=== PATIENT | female | born 1995 | race American Indian/Alaskan Native ===

== ENCOUNTER 2016-09-27 22:51 | Inpatient (IN) | payer MEDICAID ==
[2016-09-28] MEDS ORDERED: ePHEDrine SULFATE IV PRN (00:50)
[2016-09-28] MEDS ORDERED: BRETHINE IVP PRN (00:50)
[2016-09-28] MEDS ORDERED: MINERAL OIL PO PRN (00:50)
[2016-09-28] MEDS ORDERED: BRETHINE SUB-Q PRN (00:50)
[2016-09-28] MEDS ORDERED: STADOL IV PRN (00:50)
[2016-09-28] MEDS ORDERED: ZOFRAN IV PRN (00:50)
[2016-09-28] MEDS ORDERED: XYLOCAINE 2% INFILTRATI ONE (00:50)
[2016-09-28] MEDS ORDERED: PITOCin/NS 30 UNIT/500ML 30 UNITS/500 ML BAG IV SCH (01:00)
[2016-09-28] MEDS ORDERED: PITOCin/NS 20 UNIT/1000ML DRIP 20 UNITS/1,000 ML BAG IV SCH (01:00)
[2016-09-28] MEDS ORDERED: LACTATED RINGERS 1,000 ML IV SCH (01:00)
[2016-09-28 01:26] LABS: Hematocrit 45.3 % (30.3-42.9); Hemoglobin 14.8 gm/dl (10.1-14.3); Mean Corpuscular HGB Conc 33 % (30-34); Mean Corpuscular Hemoglobin 27 pg (28-32); Mean Corpuscular Volume 83 fl (79-97); Platelet Count 144 K/mm3 (140-440); Red Blood Count 5.49 M/mm3 (3.65-5.03); Red Cell Distribution Width 17.9 % (13.2-15.2); White Blood Count 10.8 K/mm3 (4.5-11.0)
[2016-09-28] MEDS ORDERED: POLYCILLIN/NS 2 GM/100 ML 2 GM/100 ML BAG IV ONE ×2 (01:34→07:30)
--- NOTE | 2016-09-28 06:07 | History and Physical Report ---
History of Present Illness Date of examination: 09/28/16 (active labor) Date of admission: 09/28/16 00:55 History of present illness: EDC Confirmation: 10/11/2016 Gestational Age: 27 6/7 weeks Past History : 1 Term Births: 0 Premature Births: 0 Living Children: 0 Para: 0 Mult. Births: 0 Prev : 0 Prev. attempt? 0 Aborta: 0 Elect. Ab: 0 Spont. Ab: 0 Ectopics: 0 Past Medical History: Hyperthyroidism - no meds in >1 year HSV2 Anemia Past Surgical History: negative Past Medical History Anesthesia Complications: negative Anemia: negative Autoimmune Disorder: negative Bleeding Disorder: negative Blood Transfusions: negative Breast Disease: negative Diabetes: negative Heart Disease: negative Hypertension: negative Hepatitis/Liver Disease: negative Kidney Disease/UTI: negative Neurologic/Epilepsy/Migraines: negative Phlebitis/Varicosities: negative Psychiatric: negative Pulmonary Disease/Asthma: negative Thyroid Disease: negative Hospitalizations: negative Surgery (Non-sap bw architect): negative Abnormal PAP: negative, pt reports normal 03/2016 KRISTY Exposure: negative Infertility: negative Uterine Anomaly: negative Uterine Surgery (not C/S): negative Other Gynecologic Problems: negative Family Hx: DM - MGM and Aunt hyperthyroid - Mother, MGM Social Hx: Single, relocated from [facility] denies ETOH, drugs or smoking Infection History Hx of STD: chlamydia HIV Risk Eval: no Hepatitis B Risk Eval: low risk Personal hx. of genital herpes: yes Partner hx. of genital herpes: no Rash, Viral, or Febrile illness since last LMP? no Varicella/Chicken Pox Status: Unknown TB Risk: no Genetic History Congenital Heart Defect: Mom: no Dad: no Bita Disease: Mom: no Dad: no Thalassemia Mom: no Dad: no Neural Tube Defect Mom: no Dad: no Down's Syndrome Mom: no Dad: no Lew-Sachs Mom: no Dad: no Sickle Cell Disease/Trait Mom: no Dad: no Hemophilia Mom: no Dad: no Muscular Dystrophy Mom: no Dad: no Cystic Fibrosis Mom: no Dad: no [place] Chorea Mom: no Dad: no Mental Retardation Mom: no Dad: no Fragile X Mom: no Dad: no Other Genetic/Chromosomal Disorder Mom: no Dad: no Child w/other defect Mom: no Dad: no Enviromental Exposures Xray Exposure: no Medication, drug, or alcohol use since LMP: no Chemical/Other Exposure: no Exposure to Cat Liter: no Hx of Parvovirus (Fifth Disease): no Occupational Exposure to Children: none Current Allergies (reviewed today): * PENICILLIN (Critical) Laboratory Results Routine Urinalysis Leukocytes: negative Nitrite: negative Urobilinogen: negative Protein: negative Blood: negative Ketone: negative Bilirubin: negative Glucose: negative Urine HCG: positive Review of Systems General Denies fever, chills, sweats, anorexia, fatigue, weakness, malaise, weight loss and sleep disorder. Denies nausea, vomiting, headache, swelling of legs, abdominal pain, vaginal discharge, vaginal bleeding and contractions. Denies vaginal discharge, incontinence, dysuria, hematuria, urinary frequency, amenorrhea, menorrhagia, abnormal vaginal bleeding, pelvic pain, genital sores, decreased libido, painful periods, painful sex, urinary urgency, hot flashes, vaginal dryness, vaginal itching and vaginal odor. CV Denies chest pains, palpitations, syncope, dyspnea on exertion, orthopnea, PND and peripheral edema. Resp Denies cough, dyspnea at rest, excessive sputum, hemoptysis, wheezing and pleurisy. GI Denies nausea, vomiting, diarrhea, constipation, change in bowel habits, abdominal pain, melena, hematochezia, jaundice, gas/bloating, indigestion/ heartburn, dysphagia and odynophagia. Endo Denies cold intolerance, heat intolerance, polydipsia, polyphagia, polyuria and unusual weight change. Breast Denies left breast lump, right breast lump, nipple discharge, bloody discharge from nipple, breast pain, abnormal mammogram and breast enlargement. MS Denies back pain, joint pain, joint swelling, muscle cramps, muscle weakness, stiffness, arthritis, sciatica, restless legs, leg pain at night and leg pain with exertion. Derm Denies rash, itching, dryness and suspicious lesions. Neuro Denies paralysis, paresthesias, headache, seizures, tremors, vertigo, transient blindness, frequent falls, frequent headaches and difficulty walking. Psych Denies depression, anxiety, irritability and mood swings. Eyes Denies blurring, diplopia, irritation, discharge, vision loss, eye pain and photophobia. ENT Denies earache, ear discharge, tinnitus, decreased hearing, nasal congestion, nosebleeds, sore throat and hoarseness. Allergy Denies urticaria, allergic rash, hay fever and recurrent infections. Heme Denies abnormal bruising, bleeding and enlarged lymph nodes. PHYSICAL EXAM HEENT: PERRLA, normal conjunctiva, external nose and nasal mucosa normal, oropharynx clear Neck/Thyroid: supple, thyroid normal Skin no significant abnormal lesions or rashes Chest: respiratory effort normal, clear to auscultation Breasts: normal without skin changes or masses CV: regular, normal S1-S2, no murmur, no rub, no gallop Abdomen: normal bowel sounds, soft, nontender, no HSM Musculoskeletal: grossly normal ROM in joints, no joint tenderness or muscle weakness Neuro: grossly normal DTRs, sensation, strength, cranial nerves Extremities: no clubbing, cyanosis, or edema Past History - Obstetrical History Expected Date of Delivery: 10/11/16 Actual Gestation: 38 Week(s) 1 Day(s) : 1 Number of Living Children: 0 Medications and Allergies Allergies Allergy/AdvReac Type Severity Reaction Status Date / Time Penicillins Allergy Itching Verified 09/28/16 01:01 Active Meds: Active Medications Butorphanol Tartrate (Stadol) 2 mg IV Q2H PRN PRN Reason: Pain , Severe (7-10) Diphtheria/Tetanus/Acell Pertussis (Boostrix) 0.5 ml IM .ONCE ONE Stop: 09/29/16 06:01 Lactated Ringer's (Lactated Ringers) 1,000 mls @ 125 mls/hr IV DIRECT TERE Last Admin: 09/28/16 01:40 Dose: 125 mls/hr Oxytocin/Sodium Chloride (Pitocin/Ns 20 Unit/1000ml Drip) 20 units in 1,000 mls @ 125 mls/hr IV DIRECT TERE Oxytocin/Sodium Chloride (Pitocin/Ns 30 Unit/500ml) 30 units in 500 mls @ 2 mls /hr IV TITR TERE PRN Reason: Protocol Influenza Virus Vaccine Quadrival (Fluarix Quad [id number](36 Mos+)) 60 mcg IM .ONCE ONE Stop: 09/28/16 12:01 Mineral Oil (Mineral Oil) 30 ml PO QHS PRN PRN Reason: Constipation Ondansetron HCl (Zofran) 4 mg IV Q8H PRN PRN Reason: Nausea And Vomiting - Vital Signs Vital signs: Vital Signs Pulse Pulse Ox 73 98 09/27/16 23:14 09/27/16 23:14 Temp Pulse Resp BP Pulse Ox 98.3 F 81 18 138/75 96 09/28/16 05:06 09/28/16 05:09 09/28/16 05:06 09/28/16 05:09 09/28/16 00:54 - Physical Exam Breasts: Positive: deferred Cardiovascular: Regular rate, Normal S1, Normal S2 Lungs: Positive: Normal air movement Abdomen: Positive: normal appearance, soft, normal bowel sounds. Negative: distention, tenderness Genitourinary (Female): Positive: normal external genitalia Vulva: both: normal Vagina: Positive: normal moisture. Negative: discharge Cervix: Negative: lesion, discharge Uterus: Positive: normal size, normal contour Adnexa: both: normal Anus/Rectum: Positive: normal perianal skin, heme negative. Negative: rectal mass, hemorrhoids Extremities: Deep Tendon Reflex Grade: Normal +2 - Obstetrical FHR: category 1 Uterine Contraction Monitor Mode: External Cervical Dilatation: 8 Cervical Effacement Percentage: 100 station: 0 Uterine Contraction Frequency (min): q2-3 Uterine Contraction Duration: 50 Uterine Contraction Pattern: Regular Results Result Diagrams: 09/28/16 01:02 Abnormal lab results 09/28/16 Range/Units 01:02 RBC 5.49 H (3.65-5.03) M/mm3 Hgb 14.8 H (10.1-14.3) gm/dl Hct 45.3 H (30.3-42.9) % MCH 27 L (28-32) pg RDW 17.9 H (13.2-15.2) % All other labs normal. Assessment and Plan - Patient Problems (1) Active labor Onset Date: ~09/28/16 Current Visit: Yes Status: Acute Plan to address problem: 21yo @ 38 weeks in active labor Desires non medicated delivery Doing well SVE 8,100,0 GBS negative Orders in EMR Anticipate delivery (2) 38 weeks gestation of Current Visit: Yes Status: Acute
[2016-09-28] MEDS ORDERED: SUBLIMAZE ONE (07:49)
--- NOTE | 2016-09-28 07:56 | Progress Note ---
Assessment and Plan Pt returned to be Requesting pain medication SVE 9,100,0 ISE placed. Anticipate delivery - Patient Problems (1) Active labor Onset Date: ~09/28/16 Current Visit: Yes Status: Acute (2) 38 weeks gestation of Current Visit: Yes Status: Acute Subjective - Subjective Date of service: 09/28/16 (requesting pain medication) Interval history: EDC Confirmation: 10/11/2016 Gestational Age: 27 6/7 weeks Past History : 1 Term Births: 0 Premature Births: 0 Living Children: 0 Para: 0 Mult. Births: 0 Prev : 0 Prev. attempt? 0 Aborta: 0 Elect. Ab: 0 Spont. Ab: 0 Ectopics: 0 Past Medical History: Hyperthyroidism - no meds in >1 year HSV2 Anemia Past Surgical History: negative Past Medical History Anesthesia Complications: negative Anemia: negative Autoimmune Disorder: negative Bleeding Disorder: negative Blood Transfusions: negative Breast Disease: negative Diabetes: negative Heart Disease: negative Hypertension: negative Hepatitis/Liver Disease: negative Kidney Disease/UTI: negative Neurologic/Epilepsy/Migraines: negative Phlebitis/Varicosities: negative Psychiatric: negative Pulmonary Disease/Asthma: negative Thyroid Disease: negative Hospitalizations: negative Surgery (Non-registered nurse teacher): negative Abnormal PAP: negative, pt reports normal 03/2016 KRISTY Exposure: negative Infertility: negative Uterine Anomaly: negative Uterine Surgery (not C/S): negative Other Gynecologic Problems: negative Family Hx: DM - MGM and Aunt hyperthyroid - Mother, MGM Social Hx: Single, relocated from [facility] denies ETOH, drugs or smoking Infection History Hx of STD: chlamydia HIV Risk Eval: no Hepatitis B Risk Eval: low risk Personal hx. of genital herpes: yes Partner hx. of genital herpes: no Rash, Viral, or Febrile illness since last LMP? no Varicella/Chicken Pox Status: Unknown TB Risk: no Genetic History Congenital Heart Defect: Mom: no Dad: no Bita Disease: Mom: no Dad: no Thalassemia Mom: no Dad: no Neural Tube Defect Mom: no Dad: no Down's Syndrome Mom: no Dad: no Lew-Sachs Mom: no Dad: no Sickle Cell Disease/Trait Mom: no Dad: no Hemophilia Mom: no Dad: no Muscular Dystrophy Mom: no Dad: no Cystic Fibrosis Mom: no Dad: no [place] Chorea Mom: no Dad: no Mental Retardation Mom: no Dad: no Fragile X Mom: no Dad: no Other Genetic/Chromosomal Disorder Mom: no Dad: no Child w/other defect Mom: no Dad: no Enviromental Exposures Xray Exposure: no Medication, drug, or alcohol use since LMP: no Chemical/Other Exposure: no Exposure to Cat Liter: no Hx of Parvovirus (Fifth Disease): no Occupational Exposure to Children: none Current Allergies (reviewed today): * PENICILLIN (Critical) Laboratory Results Routine Urinalysis Leukocytes: negative Nitrite: negative Urobilinogen: negative Protein: negative Blood: negative Ketone: negative Bilirubin: negative Glucose: negative Urine HCG: positive Review of Systems General Denies fever, chills, sweats, anorexia, fatigue, weakness, malaise, weight loss and sleep disorder. Denies nausea, vomiting, headache, swelling of legs, abdominal pain, vaginal discharge, vaginal bleeding and contractions. Denies vaginal discharge, incontinence, dysuria, hematuria, urinary frequency, amenorrhea, menorrhagia, abnormal vaginal bleeding, pelvic pain, genital sores, decreased libido, painful periods, painful sex, urinary urgency, hot flashes, vaginal dryness, vaginal itching and vaginal odor. CV Denies chest pains, palpitations, syncope, dyspnea on exertion, orthopnea, PND and peripheral edema. Resp Denies cough, dyspnea at rest, excessive sputum, hemoptysis, wheezing and pleurisy. GI Denies nausea, vomiting, diarrhea, constipation, change in bowel habits, abdominal pain, melena, hematochezia, jaundice, gas/bloating, indigestion/ heartburn, dysphagia and odynophagia. Endo Denies cold intolerance, heat intolerance, polydipsia, polyphagia, polyuria and unusual weight change. Breast Denies left breast lump, right breast lump, nipple discharge, bloody discharge from nipple, breast pain, abnormal mammogram and breast enlargement. MS Denies back pain, joint pain, joint swelling, muscle cramps, muscle weakness, stiffness, arthritis, sciatica, restless legs, leg pain at night and leg pain with exertion. Derm Denies rash, itching, dryness and suspicious lesions. Neuro Denies paralysis, paresthesias, headache, seizures, tremors, vertigo, transient blindness, frequent falls, frequent headaches and difficulty walking. Psych Denies depression, anxiety, irritability and mood swings. Eyes Denies blurring, diplopia, irritation, discharge, vision loss, eye pain and photophobia. ENT Denies earache, ear discharge, tinnitus, decreased hearing, nasal congestion, nosebleeds, sore throat and hoarseness. Allergy Denies urticaria, allergic rash, hay fever and recurrent infections. Heme Denies abnormal bruising, bleeding and enlarged lymph nodes. PHYSICAL EXAM HEENT: PERRLA, normal conjunctiva, external nose and nasal mucosa normal, oropharynx clear Neck/Thyroid: supple, thyroid normal Skin no significant abnormal lesions or rashes Chest: respiratory effort normal, clear to auscultation Breasts: normal without skin changes or masses CV: regular, normal S1-S2, no murmur, no rub, no gallop Abdomen: normal bowel sounds, soft, nontender, no HSM Musculoskeletal: grossly normal ROM in joints, no joint tenderness or muscle weakness Neuro: grossly normal DTRs, sensation, strength, cranial nerves Extremities: no clubbing, cyanosis, or edema Patient reports: movement normal, no new complaints, no loss of fluid, no vaginal bleeding, no contractions Objective - Vital Signs Vital Signs: Vital Signs - 12hr 09/27/16 09/27/16 09/27/16 23:14 23:15 23:19 Temperature Pulse Rate 73 66 67 Respiratory Rate Blood Pressure 138/84 O2 Sat by Pulse 98 98 Oximetry 09/27/16 09/27/16 09/27/16 23:24 23:29 23:34 Temperature Pulse Rate 64 81 68 Respiratory Rate Blood Pressure O2 Sat by Pulse 98 98 98 Oximetry 09/27/16 09/27/16 09/27/16 23:39 23:41 23:44 Temperature Pulse Rate 72 72 79 Respiratory Rate Blood Pressure O2 Sat by Pulse 98 94 99 Oximetry 09/27/16 09/27/16 09/27/16 23:49 23:54 23:59 Temperature Pulse Rate 69 86 73 Respiratory Rate Blood Pressure O2 Sat by Pulse 98 97 98 Oximetry 09/28/16 09/28/16 09/28/16 00:04 00:09 00:14 Temperature Pulse Rate 69 78 82 Respiratory Rate Blood Pressure O2 Sat by Pulse 97 98 97 Oximetry 09/28/16 09/28/16 09/28/16 00:19 00:24 00:29 Temperature Pulse Rate 75 73 71 Respiratory Rate Blood Pressure O2 Sat by Pulse 99 98 98 Oximetry 09/28/16 09/28/16 09/28/16 00:34 00:39 00:44 Temperature Pulse Rate 78 71 72 Respiratory Rate Blood Pressure O2 Sat by Pulse 97 98 99 Oximetry 09/28/16 09/28/16 09/28/16 00:49 00:54 01:25 Temperature Pulse Rate 84 72 85 Respiratory Rate Blood Pressure 142/83 O2 Sat by Pulse 97 96 Oximetry 09/28/16 09/28/16 09/28/16 05:06 05:09 07:07 Temperature 98.3 F 98.2 F Pulse Rate 81 82 Respiratory 18 18 Rate Blood Pressure 138/75 146/79 O2 Sat by Pulse Oximetry 09/28/16 09/28/16 09/28/16 07:23 07:37 07:52 Temperature Pulse Rate 84 71 80 Respiratory Rate Blood Pressure 142/80 140/83 139/77 O2 Sat by Pulse Oximetry - Exam Breasts: deferred Cardiovascular: Regular rate Lungs: Normal air movement Abdomen: Present: normal appearance, soft Uterus: Present: normal FHR: category 1 Uterine Contraction Monitor Mode: Internal Cervical Dilatation: 9 Cervical Effacement Percentage: 100 station: 0 Uterine Contraction Pattern: Regular Uterine Contraction Intensity: Moderate Extremities: normal Deep Tendon Reflex Grade: Normal +2 - Labs Labs: Abnormal Labs 09/28/16 01:02 RBC 5.49 H Hgb 14.8 H Hct 45.3 H MCH 27 L RDW 17.9 H Laboratory Results - last 24 hr 09/28/16 09/28/16 01:02 01:02 WBC 10.8 RBC 5.49 H Hgb 14.8 H Hct 45.3 H MCV 83 MCH 27 L MCHC 33 RDW 17.9 H Plt Count 144 Blood Type B POSITIVE Antibody Screen Negative
[2016-09-28] MEDS ORDERED: TUCKS PAD TP PRN (09:02)
[2016-09-28] MEDS ORDERED: DERMOPLAST TP PRN (09:02)
[2016-09-28] MEDS ORDERED: DULCOLAX PR PRN (09:02)
[2016-09-28] MEDS ORDERED: BENADRYL PO PRN (09:02)
[2016-09-28] MEDS ORDERED: NORCO 5/325 PO PRN (09:02)
[2016-09-28] MEDS ORDERED: LANSINOH TP PRN (09:02)
[2016-09-28] MEDS ORDERED: TYLENOL PO PRN (09:02)
[2016-09-28] MEDS ORDERED: PHENERGAN PO PRN (10:00)
[2016-09-28] MEDS ORDERED: SODIUM CHLORIDE FLUSH SYRINGE 10 ML IV PRN (10:00)
[2016-09-28] MEDS: MOTRIN PO SCH ×2 (10:22→17:48)
[2016-09-28] MEDS ORDERED: FLUARIX QUAD 2016-2017(36 MOS+) IM ONE (12:00)
--- NOTE | 2016-09-28 12:48 | Admit Criteria Form ---
Admission Criteria Documentation: OBSTETRIC AND GYNECOLOGIC DISEASE GRG Clinical Indications for Admission to Inpatient Care (Place 'X' for any and all applicable criteria): Hospital admission is needed for appropriate care of the patient because of ANY ONE of the following (1)(2)(3): [ ]I. Hemodynamic instability, as indicated by ALL of the following (1)(2)(3)( 4)(5): [ ]a) Vital signs or other findings not as expected for chronic patient condition or baseline [ ]b) Instability indicated by ANY ONE of the following: [ ]i) Hypotension [ ]ii) Symptomatic tachycardia unresponsive to treatment (eg, analgesia, fluids, sedation as indicated) [ ]iii) Inadequate perfusion indicated by ANY ONE of the following: [ ]A. Lactic acidosis (greater than 2 mmol/ L) [ ]B. New abnormal capillary refill ( greater than 3 seconds) [ ]C. Reduced urine output [ ]D. New altered mental status [ ]iv) Orthostatic vital sign changes unresponsive to treatment (eg, fluids) [ ]v) Multiple IV fluid boluses required to maintain adequate blood pressure or perfusion [ ]vi) IV inotropic or vasopressor medication required to maintain adequate blood pressure or perfusion [ ]II. Obstetric infection requiring hospitalization indicated by ANY ONE of the following(13)(14): [ ]a) Chorioamnionitis [ ]b) Endometritis (except mild endometritis) [ ]c) Pelvic abscess [ ]d) Peritonitis [ ]e) Septic pelvic thrombophlebitis [ ]III. Amniotic fluid or pulmonary embolism(4)(5)(6) [ ]IV. Suspected peritonitis or ectopic requiring monitoring beyond scope of 24 hours or observation care(7)(8) [ ]V. compromise requiring hospitalization indicated by ALL of the following(9)(10): [ ]a) compromise indicated by ANY ONE of the following(11): [ ]i) Abnormal heart rate monitoring [ ]ii) Abnormal contraction stress test [ ]iii) Abnormal biophysical profile [ ]iv) Abnormal Doppler flow in vessels (ie, Doppler velocimetry) (12) [ ]b) Persistence of compromise indicators during evaluation and observation monitoring [ ]. Ovarian hyperstimulation syndrome requiring hospitalization[A] indicated by ALL of the following(15): [ ]a) Recent ovarian stimulation with gonadotropins, or evidence on ultrasound of spontaneous emergence of large number of ovarian follicles [ ]b) Evidence of severe ovarian hyperstimulation syndrome indicated by ANY ONE of the following: [ ]i) Abdominal pain unresponsive to oral therapy [ ]ii) Acute respiratory distress syndrome [ ]iii) Electrolyte imbalance ( eg, hyponatremia, hyperkalemia) [ ]iv) Elevated liver enzymes [ ]v) Evidence of thromboembolism [ ]vi) Hemoconcentration (hematocrit greater than 45 % (0.45)) [ ]vii) Inability to maintain oral intake adequate to prevent hemoconcentration [ ]viii) Marked hypotension from baseline (eg, SBP 20 mmHg below patients usual pressure) [ ]ix) Oliguria or anuria [ ]x) Ovarian torsion [ ]xi) Pleural or pericardial effusion on x-ray or echocardiogram [ ]xii) Rapid increase in serum creatinine to greater than 1.2 mg/dL (106 micromoles/L) or creatinine clearance less than 50 mL/min/1.73m2 (0.84 mL/ sec/1.73m2) [ ]xiii) Ruptured ovarian cyst with hemorrhage [ ]xiv) Severe abdominal pain or peritoneal signs [ ]xv) Tense ascites that cannot be managed with paracentesis in outpatient setting [ ]VII.Pelvic infection requiring hospitalization indicated by ANY ONE of the following (16): [ ]a) Outpatient treatment has failed or is not appropriate (eg, inpatient monitoring required) [ ]b) Pelvic abscess [ ]c) Surgical emergency cannot be excluded (eg, rigid abdomen) [ ]d) Vomiting precluding outpatient and observation care management VIII. loss complications requiring inpatient medical treatment indicated by ANY ONE of the following (4)(7)(9): [ ]a) Fever [ ]b) Peritonitis [ ]c) Sepsis [ ]d) Severe abdominal pain [ ]IX. or patient requiring monitoring for severe heart failure, pulmonary disease, or other comorbid condition (eg, peripartum cardiomyopathy) (4)(17) [ ]X. patient with rupture of membranes requiring hospitalization indicated by ANY ONE of the following: [ ]a) Chorioamnionitis, cloudy amniotic fluid, or other evidence of infection [ ]b) compromise or other need for monitoring (11) [ ]c) Gestation longer than 23 weeks and ANY ONE of the following: [ ]i) Abnormal (noncephalic) presentation [ ]ii) Inadequate home environment (eg, home too far from hospital, unable to rapidly return to hospital) [ ]d) Temperature greater than 100.4 degrees F (38 degrees C)( oral) [ ]e) Threatened labor requiring monitoring beyond scope (eg, over 24 hours) of observation Care [ ] XI. complications, including severe lacerations, infections, or retained placenta (19) [ ] XII.Uterine bleeding with high-risk features indicated by ANY ONE of the following (4): [ ]a) Active major hemorrhage (eg, hemorrhage) [ ]b) Coagulopathy with active bleeding [ ]c) Gestational trophoblastic disease (eg, molar ) (20 ) [ ]d) (longer than 23 weeks) and ANY ONE of the following: [ ]i) Pain [ ]ii) Placental abruption, known or suspected [ ]iii) Placenta accrete, known or suspected(21) [ ]iv) Placenta previa, known or suspected [ ]v) Vasa previa [ ]e) Severe anemia [ X]XIII. Obstetric or Gynecologic Disease, condition or symptom for which ANY ONE of the following: [X ]a) Emergency and observation care have failed or are not considered appropriate ( Also use General Criteria: Observation Care Criteria as appropriate) [X ]b) Presence of a General Admission Criteria or Pediatric General Admission Criteria The original [email or web address] content [facility] by [facility] has been revised. The portions of the content which have been revised are identified through the use of italic text or in bold, and [facility] has neither reviewed nor approved the modified material.All other unmodified content is copyright [facility]. Please see references footnoted in the original [facility] edition 2016 Admission Criteria Met: Yes
--- NOTE | 2016-09-28 14:07 | Procedure Note ---
OB Delivery Note - Delivery Date of Delivery: 09/28/16 Hand Counter: YOON PICKETT Estimated blood loss: other (400cc) - Vaginal Delivery presentation: vertex Delivery position: OA Intrapartum events: none Delivery induction: none Delivery augmentation: rupture of membranes Delivery monitor: external FHT, external uterine, internal FHT Route of delivery: Delivery placenta: spontaneous Delivery cord: 3 umbilical vessels Episiotomy: none Delivery laceration: none Anesthesia: intravenous Delivery comments: live born male over intact perineum Baby placed skin to skin on mom's abdomen Cord blood obt Placenta and membrane del complete and intact, 3 vessel cord. Pit IVFs. 8/9, EBL 400, Wgt 7-8. Mom and baby remain LDR stable. - Infant A at 1 minute: 8 at 5 minutes: 9 Infant Gender: Male (wgt 7-8)
[2016-09-28] MEDS: PRENATAL VITAMIN PO SCH (15:45)
[2016-09-28] MEDS: COLACE PO SCH (15:45)
[2016-09-28] MEDS ORDERED: MILK OF MAGNESIA PO PRN (22:00)
[2016-09-29 01:02] LABS: Hematocrit 37.5 % (30.3-42.9); Hemoglobin 12.3 gm/dl (10.1-14.3)
[2016-09-29] MEDS: COLACE PO SCH ×2 (01:13→10:45)
[2016-09-29] MEDS: MOTRIN PO SCH ×3 (01:13→12:20)
[2016-09-29] MEDS ORDERED: BOOSTRIX IM ONE (06:00)
--- NOTE | 2016-09-29 08:28 | Progress Note ---
Assessment and Plan Patient doing well, no complaints. desires d/c home today. Neida arreguin, H&H stable 12.3/37.5, VSSAF (b/p's 130-140's/50-80's). Plan for f/u 1 week for b/p check during son's circumcision. - Patient Problems (1) Spontaneous vaginal delivery Current Visit: Yes Status: Acute Subjective - Subjective Date of service: 09/29/16 Principal diagnosis: day #1 s/p Patient reports: appetite normal, voiding normally, pain well controlled, ambulating normally, no dizzy ambulation, no nauseated [place]: doing well, bottle feeding Objective - Vital Signs Latest vital signs: Vital Signs Temp Pulse Pulse Pulse Resp BP BP 09/29/16 00:00 98.2 F 78 20 142/74 09/28/16 16:22 98.2 F 87 20 149/84 09/28/16 12:50 98.4 F 88 20 136/54 09/28/16 09:50 98.3 F 71 18 147/73 09/28/16 09:45 98.2 F 18 09/28/16 09:40 75 135/76 09/28/16 09:14 71 134/71 09/28/16 09:07 69 142/72 09/28/16 08:52 80 149/74 09/28/16 08:37 88 140/70 09/28/16 08:29 88 140/67 Intake and Output 09/28/16 09/29/16 09/29/16 22:59 06:59 14:59 Intake Total 1360 120 Output Total 240 Balance 1120 120 Intake: IV 1000 PITOCin/NS 20 UNIT/1000ML 1000 DRIP 20 units In 1,000 ml @ 125 mls/hr IV DIRECT TERE Rx#:[id number] Oral 360 120 Output: Urine 240 Void 240 Other: Total, Intake Amount 240 120 Total, Output Amount 240 # Voids Void 1 1 - Exam Breasts: Present: normal Cardiovascular: Present: Regular rate Lungs: Present: Clear to auscultation, Normal air movement Abdomen: Present: normal appearance, soft Vulva: both: normal Uterus: Present: normal, firm, fundal height at umbilicus Extremities: Present: normal Deep Tendon Reflex Grade: Normal +2
--- NOTE | 2016-09-29 08:29 | Discharge Summary ---
Providers - Providers Date of Admission: 09/28/16 00:55 Date of discharge: 09/29/16 (desires d/c home) Attending physician: RANDA PEÑA Primary care physician: RANDA PEÑA Hospitalization Reason for admission: active labor Delivery: Episiotomy: none Laceration: none Other procedures: none complications: none Discharge diagnosis: IUP at term delivered [place] baby: male Hospital course: uncomplicated vaginal Condition at discharge: Good Disposition: DISCHARGED TO HOME OR SELFCARE - Discharge Diagnoses (1) Spontaneous vaginal delivery Status: Acute Plan - Discharge Medications Prescriptions: Ibuprofen [Motrin 800 MG tab] 800 mg PO Q8HR PRN #30 tablet PRN Reason: Pain Lidocain2.5%/Prilocai2.5% [Emla] 5 gm TP ONCE PRN #1 tube PRN Reason: Pain - Provider Discharge Summary Activity: routine, no sex for 6 weeks, no heavy lifting 4 weeks, no strenuous exercise Diet: routine Instructions: routine Additional instructions: [] Smoking cessation referral if applicable(refer to patient education folder for contact #) [] Refer to [facility] Booklet Call your doctor immediately for: * Fever > 100.5 * Heavy vaginal bleeding ( >1 pad per hour) * Severe persistent headache * Shortness of breath * Reddened, hot, painful area to leg or breast * Drainage or odor from incision. * Keep incision clean and dry at all times and follow doctor's instructions regarding bathing/showering - Follow up plan Follow up: RANDA PEÑA MD [Primary Care Provider] - 7 Days (Congratulations! Please call [phone] to schedule your son's circumcision in 1 week and your blood pressure check 1 week. bring EMLA cream with you to your son's appointment and await further instructions. Call for any questions or concerns.)
[2016-09-29] MEDS: PRENATAL VITAMIN PO SCH (10:45)
[2016-09-29] MEDS ORDERED: M-M-R II VACCINE SUB-Q ONE (11:00)
[2016-09-29] MEDS ORDERED: FLUARIX QUAD 2016-2017(36 MOS+) IM ONE (14:00)
[2016-09-29 17:29] VITALS: BP 134/62
== END 2016-09-29 17:02 | disposition home or self-care (01) | DRG 775 ==
LOC: TRG 22:51 → LD 09-28 00:55 → OB 09-28 10:02
PROVIDERS: ADMIT Obstetrics & Gynecology; ATTEND Obstetrics & Gynecology
PROC: 10E0XZZ Delivery of Products of Conception, External Approach (ICD-10-PCS; principal; 2016-09-28)
DX: O99.284 Endocrine, nutritional and metabolic diseases complicating childbirth (principal); E05.90 Thyrotoxicosis, unspecified without thyrotoxic crisis or storm; Z3A.38 38 weeks gestation of pregnancy; Z37.0 Single live birth; Z88.0 Allergy status to penicillin; Z83.3 Family history of diabetes mellitus; Z84.89 Family history of other specified conditions; Z86.19 Personal history of other infectious and parasitic diseases
CPT/HCPCS: 36415; 85014; 85018; 85027; 86592; 86850; 86900; 86901; 90471; 90686; 90715; J0290; J2590; J3010; J7120

== ENCOUNTER 2022-01-31 07:24 | Emergency (ER) | payer OTHER ==
[2022-01-31 07:35] VITALS: BP 135/72
[2022-01-31] MEDS ORDERED: ACETAMINOPHEN 500 MG TAB PO ONE (07:43)
[2022-01-31] MEDS ORDERED: IBUPROFEN 400 MG TAB PO ONE (07:43)
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
== END 2022-01-31 15:00 | disposition home or self-care (01) ==
LOC: ED 07:24
DX: M54.2 Cervicalgia (principal); G44.309 Post-traumatic headache, unspecified, not intractable; V89.2XXA Person injured in unspecified motor-vehicle accident, traffic, initial encounter; W22.10XA Striking against or struck by unspecified automobile airbag, initial encounter; Y93.89 Activity, other specified; Y92.89 Other specified places as the place of occurrence of the external cause; Y99.8 Other external cause status
CPT/HCPCS: 70450; 72125; 99284

== ENCOUNTER 2022-02-01 07:41 | Emergency (ER) | payer OTHER ==
[2022-02-01 08:12] VITALS: BP 137/84
== END 2022-02-02 01:43 | disposition left against medical advice (07) ==
LOC: ED 07:41
DX: R52 Pain, unspecified (principal); Z53.21 Procedure and treatment not carried out due to patient leaving prior to being seen by health care provider; X58.XXXA Exposure to other specified factors, initial encounter; Y93.89 Activity, other specified; Y92.89 Other specified places as the place of occurrence of the external cause; Y99.8 Other external cause status